=== PATIENT | female | born 1945 | race Two or more races ===

== ENCOUNTER 2021-02-06 09:42 | Inpatient (IN) | payer MEDICARE, MEDICAID ==
[~2021-02-06] VITALS: Ht 165.1 cm; Wt 49.0 kg
[2021-02-06 12:20] LABS: BASOPHILS % 1.2 % (0.0-2.0); EOSINOPHILS % 0.4 % (0.0-5.0); HEMATOCRIT. 37.3 % (36.0-48.0); HEMOGLOBIN. 12.4 g/dL (12.0-16.0); LYMPHOCYTES % 21.5 % (20.0-50.0); MEAN CORPUSCULAR HEMOGLOBIN 30.2 pg (28.0-32.0); MEAN CORPUSCULAR VOLUME 90.8 fL (81.0-99.0); MEAN PLATELET VOLUME 9.1 fl (7.4-10.4); MONOCYTES % 9.4 % (2.0-8.0); NEUTROPHILS % 67.5 % (40.0-76.0); PLATELET 242 x1000/uL (130-400); RED BLOOD CELL COUNT 4.11 mill/uL (4.2-5.4); RED CELL DISTRIBUTION WIDTH 13.5 % (11.6-14.6)
[2021-02-06 12:27] LABS: CHLORIDE 104 mEq/L (98-107)
[2021-02-06 12:31] LABS: ETHANOL BLOOD < 10 mg/dL
[2021-02-06 12:36] LABS: CREATINE KINASE 238 IU/L (26-192)
[2021-02-06] MEDS ORDERED: HYDRALAZINE 20MG/ML VIAL IV ONE (13:30)
[2021-02-06] MEDS ORDERED: LORAZEPAM 2MG/ML CPJ IV ONE (14:00)
[2021-02-06] MEDS ORDERED: ACETAMINOPHEN 325MG TABLET PO PRN (14:30)
[2021-02-06 14:40] LABS: CLARITY URINE CLEAR (CLEAR); COLOR URINE YELLOW (YELLOW); KETONES URINE NEGATIVE (NEGATIVE); LEUKOCYTE ESTERASE URINE NEGATIVE (NEGATIVE); NITRITE URINE NEGATIVE (NEGATIVE); OCCULT BLOOD URINE TRACE (NEGATIVE); PH URINE 7.5 (4.5-8.0); PROTEIN URINE 1+ (NEGATIVE); SPECIFIC GRAVITY URINE 1.008 (1.005-1.030); UROBILINOGEN URINE 0.2 E.U./dL (0.2-1.0)
[2021-02-06 15:01] LABS: *AMPHETAMINES SCREEN URINE NEGATIVE (NEGATIVE); *BARBITURATES SCREEN URINE NEGATIVE (NEGATIVE); *BENZODIAZEPINES SCREEN URINE NEGATIVE (NEGATIVE); *COCAINE SCREEN URINE NEGATIVE (NEGATIVE); METHADONE URINE SCREEN NEGATIVE (NEGATIVE); OPIATES URINE SCREEN NEGATIVE (NEGATIVE)
[2021-02-06 15:02] LABS: CANNABINOID URINE SCREEN NEGATIVE (NEGATIVE); PHENCYCLIDINE URINE SCREEN NEGATIVE (NEGATIVE)
[2021-02-06] MEDS ORDERED: HYDRALAZINE 20MG/ML VIAL IV SCH (18:00)
[2021-02-06] MEDS ORDERED: HYDRALAZINE 20MG/ML VIAL IV PRN (18:00)
[2021-02-06 18:28] VITALS: BP 188/96
[2021-02-06 18:32] VITALS: BP 188/96
[2021-02-06] MEDS: CLONIDINE 0.1MG TABLET PO PRN (18:55)
[2021-02-06 20:00] VITALS: BP 118/59
[2021-02-06] MEDS ORDERED: POTASSIUM CHLORIDE 20MEQ TABLET SR PO NR (20:00)
[2021-02-06] MEDS: AMLODIPINE 5MG TABLET PO SCH (21:55)
[2021-02-07] VITALS: BP 120/60
[2021-02-07 04:00] VITALS: BP 110/68
[2021-02-07 08:00] VITALS: BP 170/92
[2021-02-07] MEDS: AMLODIPINE 5MG TABLET PO SCH ×2 (08:54→20:30)
[2021-02-07] MEDS: CLONIDINE 0.1MG TABLET PO PRN (08:54)
[2021-02-07 12:00] VITALS: BP 124/76
[2021-02-07] MEDS: HYDRALAZINE HCL 10MG TABLET PO SCH ×2 (13:55→21:46)
[2021-02-07 16:00] VITALS: BP 158/80
[2021-02-07] MEDS: SODIUM CHLORIDE 0.9% 1,000 ML IV SCH ×2 (18:31→21:47)
[2021-02-07 20:00] VITALS: BP 137/72
[2021-02-08] VITALS (7 sets, daily range): BP systolic 117–182; BP diastolic 57–94
[2021-02-08] MEDS: HYDRALAZINE HCL 10MG TABLET PO SCH ×3 (05:30→22:08)
[2021-02-08 06:32] LABS: BASOPHILS % 0.7 % (0.0-2.0); EOSINOPHILS % 1.2 % (0.0-5.0); HEMATOCRIT. 37.6 % (36.0-48.0); HEMOGLOBIN. 12.6 g/dL (12.0-16.0); MEAN CORPUSCULAR HEMOGLOBIN 30.6 pg (28.0-32.0); MEAN CORPUSCULAR VOLUME 91.1 fL (81.0-99.0); MEAN PLATELET VOLUME 9.1 fl (7.4-10.4); NEUTROPHILS % 69.1 % (40.0-76.0); PLATELET 272 x1000/uL (130-400); RED BLOOD CELL COUNT 4.13 mill/uL (4.2-5.4); RED CELL DISTRIBUTION WIDTH 13.6 % (11.6-14.6)
[2021-02-08] MEDS: AMLODIPINE 5MG TABLET PO SCH ×2 (08:06→21:51)
[2021-02-08] MEDS: CLONIDINE 0.1MG TABLET PO PRN (08:06)
[2021-02-08] MEDS: CLONIDINE 0.1MG TABLET PO SCH ×2 (13:17→22:08)
[2021-02-08] MEDS: ENOXAPARIN 40MG/0.4ML SYR SUBCUT SCH (13:17)
[2021-02-08] MEDS ORDERED: CLONIDINE 0.1MG TABLET PO PRN (20:00)
[2021-02-08] MEDS: ATORVASTATIN CALCIUM 40MG TABLET PO SCH (21:51)
[2021-02-08] MEDS: ZOLPIDEM TARTRATE 5MG TABLET PO PRN (21:51)
[2021-02-09] VITALS: BP 115/63
[2021-02-09 04:00] VITALS: BP 147/89
[2021-02-09] MEDS: HYDRALAZINE HCL 10MG TABLET PO SCH ×3 (05:21→22:18)
[2021-02-09] MEDS: CLONIDINE 0.1MG TABLET PO SCH ×2 (05:21→13:17)
[2021-02-09 08:00] VITALS: BP 175/84
[2021-02-09] MEDS: ASPIRIN 81MG TABLET PO SCH (08:54)
[2021-02-09] MEDS: AMLODIPINE 5MG TABLET PO SCH ×2 (08:59→22:17)
[2021-02-09 11:28] LABS: VITAMIN B12 SERUM 249 pg/mL (211-911)
[2021-02-09 12:00] VITALS: BP 128/70
[2021-02-09] MEDS: ENOXAPARIN 40MG/0.4ML SYR SUBCUT SCH (13:17)
[2021-02-09 16:00] VITALS: BP 107/59
[2021-02-09 20:00] VITALS: BP 145/76
[2021-02-09] MEDS: ATORVASTATIN CALCIUM 40MG TABLET PO SCH (22:17)
[2021-02-10] VITALS: BP 167/85
[2021-02-10] MEDS: CLONIDINE 0.1MG TABLET PO SCH ×4 (00:14→21:52)
[2021-02-10 04:00] VITALS: BP 163/82
[2021-02-10] MEDS: HYDRALAZINE HCL 10MG TABLET PO SCH ×3 (05:14→21:53)
[2021-02-10 07:35] LABS: EOSINOPHILS % 3.2 % (0.0-5.0); HEMATOCRIT. 32.7 % (36.0-48.0); HEMOGLOBIN. 10.5 g/dL (12.0-16.0); LYMPHOCYTES % 21.6 % (20.0-50.0); MEAN CORPUSCULAR HEMOGLOBIN 29.8 pg (28.0-32.0); MEAN CORPUSCULAR VOLUME 92.4 fL (81.0-99.0); MEAN PLATELET VOLUME 9.6 fl (7.4-10.4); MONOCYTES % 8.2 % (2.0-8.0); PLATELET 237 x1000/uL (130-400); RED BLOOD CELL COUNT 3.54 mill/uL (4.2-5.4); RED CELL DISTRIBUTION WIDTH 13.6 % (11.6-14.6)
[2021-02-10 08:00] VITALS: BP 144/75
[2021-02-10] MEDS: ASPIRIN 81MG TABLET PO SCH (09:29)
[2021-02-10] MEDS: AMLODIPINE 5MG TABLET PO SCH ×2 (09:30→21:52)
[2021-02-10] MEDS: CYANOCOBALAMIN 1000MCG/ML VIAL IM SCH (09:30)
[2021-02-10 12:00] VITALS: BP 141/75
[2021-02-10] MEDS: ENOXAPARIN 40MG/0.4ML SYR SUBCUT SCH (13:33)
[2021-02-10 16:00] VITALS: BP 102/57
[2021-02-10] MEDS: LORAZEPAM 2MG/ML CPJ IM PRN (20:05)
[2021-02-10 20:40] VITALS: BP 130/75
[2021-02-10] MEDS: ATORVASTATIN CALCIUM 40MG TABLET PO SCH (21:52)
[2021-02-11 00:01] VITALS: BP_SYST 132; BP_SYST 152; BP_DIAS 54; BP_DIAS 82
[2021-02-11 04:00] VITALS: BP 160/83
[2021-02-11] MEDS: HYDRALAZINE HCL 10MG TABLET PO SCH ×3 (06:00→21:29)
[2021-02-11] MEDS: CLONIDINE 0.1MG TABLET PO SCH ×3 (06:00→22:34)
[2021-02-11 08:00] VITALS: BP 138/67
[2021-02-11] MEDS: AMLODIPINE 5MG TABLET PO SCH ×2 (08:36→21:29)
[2021-02-11] MEDS: CYANOCOBALAMIN 1000MCG/ML VIAL IM SCH (08:36)
[2021-02-11] MEDS: ASPIRIN 81MG TABLET PO SCH (08:37)
[2021-02-11 12:00] VITALS: BP 140/73
[2021-02-11] MEDS: ENOXAPARIN 40MG/0.4ML SYR SUBCUT SCH (13:40)
[2021-02-11] MEDS: LORAZEPAM 2MG/ML CPJ IM PRN (15:10)
[2021-02-11 16:00] VITALS: BP 124/60
[2021-02-11 20:00] VITALS: BP 129/71
[2021-02-11] MEDS: ATORVASTATIN CALCIUM 40MG TABLET PO SCH (21:28)
[2021-02-11] MEDS: ZOLPIDEM TARTRATE 5MG TABLET PO PRN (22:34)
[2021-02-12] VITALS: BP 134/66
[2021-02-12 04:00] VITALS: BP 142/75
[2021-02-12] MEDS: HYDRALAZINE HCL 10MG TABLET PO SCH ×3 (06:31→20:13)
[2021-02-12] MEDS: CLONIDINE 0.1MG TABLET PO SCH ×3 (06:32→20:13)
[2021-02-12] MEDS: CYANOCOBALAMIN 1000MCG/ML VIAL IM SCH (08:25)
[2021-02-12] MEDS: ENOXAPARIN 30MG/0.3ML SYR SUBCUT SCH (08:25)
[2021-02-12] MEDS: ASPIRIN 81MG TABLET PO SCH (08:25)
[2021-02-12] MEDS: AMLODIPINE 5MG TABLET PO SCH ×2 (08:26→20:13)
[2021-02-12 10:49] LABS: HEMOGLOBIN 12.4 g/dL (12.0-16.0); MEAN CORPUSCULAR HEMOGLOBIN 29.9 pg (28.0-32.0); MEAN CORPUSCULAR VOLUME 91.3 fL (81.0-99.0); PLATELET 285 x1000/uL (130-400); RED BLOOD CELL COUNT 4.17 mill/uL (4.2-5.4); RED CELL DISTRIBUTION WIDTH 13.7 % (11.6-14.6)
[2021-02-12 12:00] VITALS: BP 129/65
[2021-02-12 16:00] VITALS: BP 142/78
[2021-02-12 20:00] VITALS: BP 126/72
[2021-02-12] MEDS: ATORVASTATIN CALCIUM 40MG TABLET PO SCH (20:13)
[2021-02-13] VITALS: BP 119/68
[2021-02-13 04:00] VITALS: BP 128/69
[2021-02-13] MEDS: HYDRALAZINE HCL 10MG TABLET PO SCH ×3 (05:17→21:21)
[2021-02-13] MEDS: CLONIDINE 0.1MG TABLET PO SCH ×3 (05:17→21:21)
[2021-02-13 06:16] LABS: HEMATOCRIT 32.7 % (36.0-48.0); HEMOGLOBIN 10.8 g/dL (12.0-16.0); MEAN CORPUSCULAR HEMOGLOBIN 30.1 pg (28.0-32.0); MEAN CORPUSCULAR VOLUME 91.6 fL (81.0-99.0); PLATELET 249 x1000/uL (130-400); RED BLOOD CELL COUNT 3.57 mill/uL (4.2-5.4); RED CELL DISTRIBUTION WIDTH 13.5 % (11.6-14.6)
[2021-02-13 08:00] VITALS: BP 147/81
[2021-02-13] MEDS: ASPIRIN 81MG TABLET PO SCH (09:43)
[2021-02-13] MEDS: AMLODIPINE 5MG TABLET PO SCH ×2 (09:44→21:23)
[2021-02-13] MEDS: ENOXAPARIN 30MG/0.3ML SYR SUBCUT SCH (10:37)
[2021-02-13 12:00] VITALS: BP 136/74
[2021-02-13 16:00] VITALS: BP 128/69
[2021-02-13 20:00] VITALS: BP 150/79
[2021-02-13] MEDS: ATORVASTATIN CALCIUM 40MG TABLET PO SCH (21:20)
[2021-02-14] VITALS: BP 115/64
[2021-02-14 04:00] VITALS: BP 139/73
[2021-02-14] MEDS: HYDRALAZINE HCL 10MG TABLET PO SCH ×3 (06:19→20:58)
[2021-02-14] MEDS: CLONIDINE 0.1MG TABLET PO SCH ×3 (06:20→20:58)
[2021-02-14 08:00] VITALS: BP 169/83
[2021-02-14] MEDS: ASPIRIN 81MG TABLET PO SCH (08:57)
[2021-02-14] MEDS: ENOXAPARIN 30MG/0.3ML SYR SUBCUT SCH (08:58)
[2021-02-14] MEDS: AMLODIPINE 5MG TABLET PO SCH ×2 (08:58→20:58)
[2021-02-14 12:00] VITALS: BP 145/77
[2021-02-14 16:00] VITALS: BP 122/65
[2021-02-14 20:00] VITALS: BP 143/74
[2021-02-14] MEDS: ATORVASTATIN CALCIUM 40MG TABLET PO SCH (20:58)
[2021-02-15] VITALS: BP 115/73
[2021-02-15 04:00] VITALS: BP 151/75
[2021-02-15] MEDS: CLONIDINE 0.1MG TABLET PO SCH ×3 (06:03→20:58)
[2021-02-15] MEDS: HYDRALAZINE HCL 10MG TABLET PO SCH ×3 (06:03→20:56)
[2021-02-15 08:00] VITALS: BP 148/76
[2021-02-15] MEDS: ASPIRIN 81MG TABLET PO SCH (08:20)
[2021-02-15] MEDS: AMLODIPINE 5MG TABLET PO SCH ×2 (08:21→20:56)
[2021-02-15] MEDS: ENOXAPARIN 30MG/0.3ML SYR SUBCUT SCH (08:21)
[2021-02-15 12:00] VITALS: BP 150/80
[2021-02-15 16:00] VITALS: BP 127/70
[2021-02-15 20:00] VITALS: BP 143/74
[2021-02-15] MEDS: ATORVASTATIN CALCIUM 40MG TABLET PO SCH (20:57)
[2021-02-15] MEDS ORDERED: LORAZEPAM 2MG/ML CPJ IM NR (21:00)
[2021-02-15] MEDS ORDERED: MEMANTINE HCL 5MG TABLET PO SCH (21:00)
[2021-02-16] VITALS: BP 107/56
[2021-02-16] MEDS: MEMANTINE HCL 5MG TABLET PO SCH ×3 (00:18→21:31)
[2021-02-16 04:00] VITALS: BP 165/81
[2021-02-16] MEDS: HYDRALAZINE HCL 10MG TABLET PO SCH ×3 (05:34→21:33)
[2021-02-16] MEDS: CLONIDINE 0.1MG TABLET PO SCH ×3 (05:34→21:34)
[2021-02-16 08:00] VITALS: BP 142/65
[2021-02-16] MEDS: ENOXAPARIN 30MG/0.3ML SYR SUBCUT SCH (08:55)
[2021-02-16] MEDS: AMLODIPINE 5MG TABLET PO SCH ×2 (08:55→21:32)
[2021-02-16] MEDS: ASPIRIN 81MG TABLET PO SCH (08:55)
[2021-02-16 12:00] VITALS: BP 131/77
[2021-02-16 16:00] VITALS: BP 120/62
[2021-02-16 20:00] VITALS: BP 121/75
[2021-02-16] MEDS: ATORVASTATIN CALCIUM 40MG TABLET PO SCH (21:31)
[2021-02-17] VITALS: BP 144/75
[2021-02-17] MEDS: LORAZEPAM 2MG/ML CPJ IV PRN ×2 (01:27→11:07)
[2021-02-17 04:00] VITALS: BP 138/70
[2021-02-17] MEDS: HYDRALAZINE HCL 10MG TABLET PO SCH ×3 (05:28→21:19)
[2021-02-17] MEDS: CLONIDINE 0.1MG TABLET PO SCH ×3 (05:28→21:20)
[2021-02-17 08:00] VITALS: BP 164/84
[2021-02-17] MEDS: AMLODIPINE 5MG TABLET PO SCH ×2 (08:58→21:19)
[2021-02-17] MEDS: ENOXAPARIN 30MG/0.3ML SYR SUBCUT SCH (08:58)
[2021-02-17] MEDS: ASPIRIN 81MG TABLET PO SCH (08:58)
[2021-02-17] MEDS: MEMANTINE HCL 5MG TABLET PO SCH ×2 (08:59→21:19)
[2021-02-17 12:00] VITALS: BP 134/69
[2021-02-17 16:00] VITALS: BP 135/75
[2021-02-17 20:00] VITALS: BP 118/61
[2021-02-17] MEDS: ATORVASTATIN CALCIUM 40MG TABLET PO SCH (21:19)
[2021-02-18] VITALS: BP 113/61
[2021-02-18 04:00] VITALS: BP 139/68
[2021-02-18] MEDS: CLONIDINE 0.1MG TABLET PO SCH ×3 (06:14→21:11)
[2021-02-18] MEDS: HYDRALAZINE HCL 10MG TABLET PO SCH ×3 (06:15→21:10)
[2021-02-18 08:00] VITALS: BP 148/70
[2021-02-18] MEDS: ASPIRIN 81MG TABLET PO SCH (09:34)
[2021-02-18] MEDS: MEMANTINE HCL 5MG TABLET PO SCH ×2 (09:34→21:10)
[2021-02-18] MEDS: AMLODIPINE 5MG TABLET PO SCH ×2 (09:34→21:10)
[2021-02-18] MEDS: ENOXAPARIN 30MG/0.3ML SYR SUBCUT SCH (09:54)
[2021-02-18 12:00] VITALS: BP 150/73
[2021-02-18 16:00] VITALS: BP 158/76
[2021-02-18 20:00] VITALS: BP 138/70
[2021-02-18] MEDS: ATORVASTATIN CALCIUM 40MG TABLET PO SCH (21:10)
[2021-02-19] VITALS: BP 130/63
[2021-02-19 04:00] VITALS: BP 140/68
[2021-02-19] MEDS: HYDRALAZINE HCL 10MG TABLET PO SCH ×2 (06:50→13:27)
[2021-02-19] MEDS: CLONIDINE 0.1MG TABLET PO SCH ×2 (06:50→13:27)
[2021-02-19 07:57] VITALS: BP 133/74
[2021-02-19] MEDS: MEMANTINE HCL 5MG TABLET PO SCH (09:18)
[2021-02-19] MEDS: ASPIRIN 81MG TABLET PO SCH (09:18)
[2021-02-19] MEDS: AMLODIPINE 5MG TABLET PO SCH (09:18)
[2021-02-19] MEDS: ENOXAPARIN 30MG/0.3ML SYR SUBCUT SCH (09:18)
[2021-02-19 11:46] VITALS: BP 142/74
[2021-02-19 12:45] VITALS: BP 144/76
[2021-02-19 16:00] VITALS: BP_SYST 131; BP_SYST 144; BP_DIAS 63; BP_DIAS 76
== END 2021-02-19 19:06 | DRG 52 ==
LOC: ER 10:23 → 7EST 14:11 → ENRESERV 16:23 → 7EST 02-11 22:36 → 6EST 02-19 12:19
PROVIDERS: ADMIT Family Medicine Adult Medicine; ATTEND Family Medicine Adult Medicine
PROC: 4A10X4Z Monitoring of Central Nervous Electrical Activity, External Approach (ICD-10-PCS; principal; 2021-02-10)
DX: I67.4 Hypertensive encephalopathy (principal); R65.11 Systemic inflammatory response syndrome (SIRS) of non-infectious origin with acute organ dysfunction; I63.9 Cerebral infarction, unspecified; E44.1 Mild protein-calorie malnutrition; N17.9 Acute kidney failure, unspecified; I16.0 Hypertensive urgency; E78.5 Hyperlipidemia, unspecified; E87.6 Hypokalemia; Z86.73 Personal history of transient ischemic attack (TIA), and cerebral infarction without residual deficits; Z78.1 Physical restraint status; Z68.1 Body mass index [BMI] 19.9 or less, adult; F03.90 Unspecified dementia, unspecified severity, without behavioral disturbance, psychotic disturbance, mood disturbance, and anxiety; I99.8 Other disorder of circulatory system; Z68.24 Body mass index [BMI] 24.0-24.9, adult
CPT/HCPCS: 36415; 70551; 80048; 80053; 80061; 80305; 80320; 81003; 82140; 82550; 82607; 82962; 84443; 84484; 85025; 85027; 92610; 93005; 93306; 93880; 95816; 97110; 97161; 97166; 97530; 97535; 99291; C1893; J0360; J1650; J2060; J3420; J7030; G0480